=== PATIENT | female | born 2000 | race Caucasian/White ===

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

== ENCOUNTER → 2021-12-23 | Outpatient (CLI) | payer OTHER ==
[~2021-12-23] MED LIST: BENTYL 10MG CAP10 MG PO; COLACE 100MG C100 MG PO; COLACE100 MG PO; IBUPROFEN600 MG PO; IBUPROFEN800 MG PO; LORTAB 5-325 M1 EACH PO; PRENATABS FA T1 EACH PO; TRAMADOL HCL50 MG PO; ZOFRAN 4 MG TAB4 MG PO; ZOFRAN4 MG PO
== END ==
LOC: US 10:00
DX: R10.9 Unspecified abdominal pain (principal)
CPT/HCPCS: 76700

== ENCOUNTER 2022-02-15 20:08 | Emergency (ER) | payer OTHER ==
[2022-02-15] MEDS ORDERED: ONDANSETRON ODT4 MG SL (21:05)
== END 2022-02-15 23:05 | disposition home or self-care (01) ==
LOC: ER1 20:08
DX: J11.1 Influenza due to unidentified influenza virus with other respiratory manifestations (principal); J02.0 Streptococcal pharyngitis; R23.3 Spontaneous ecchymoses
CPT/HCPCS: 96372; 99283; J0561